=== PATIENT | female | born 1970 | race Hispanic/Latino ===

== ENCOUNTER 2018-07-04 13:44 | Emergency (ER) | payer BC ==
[~2018-07-04] VITALS: Ht 157.5 cm; Wt 86.2 kg
[2018-07-04] MEDS ORDERED: DILAUDID4 MG PO (14:20)
[2018-07-04] MEDS ORDERED: STOOL SOFTENER1 EAC2 PO (14:20)
[2018-07-04] MEDS ORDERED: SCOPOLAMINE1 EACH TD (14:21)
--- OUTSIDE RECORDS SUMMARY | 2018-07-04 14:52 | XMS ---
PreManage Notification: SIERRA JEFFERSON Security Dietary Cook Events No recent Security Events currently on file CRITERIA MET - PDM - [facility] - 2 Visits in 30 Days CARE PROVIDERS Melo Vanegas Community Health Worker 07/03/2018-Remedios Raya - PHONE: [phone] OLIVER ANGELES Nurse Practitioner: Family Current PHONE: [phone] FRANNIE JEFFREY Physician Supervisor Cd Area Current PHONE: [phone] FRANNIE JEFFREY Primary Care Current PHONE: Unknown [facility] PHONE: [phone] Maryellen has no Care Guidelines for this patient. Arsh VISIT COUNT (12 MO.) 5 [facility] TOTAL 7 NOTE: Visits indicate total known visits. ED/UCC VISIT TRACKING (12 MO.) 07/04/2018 13:45 [facility] [place] TYPE: Emergency COMPLAINT: - RT SHOULDER PAIN 07/03/2018 09:00 [facility] [place] TYPE: Emergency DIAGNOSES: - Pain in right shoulder - shoulder pain 07/02/2018 01:02 [facility] [place] TYPE: Emergency DIAGNOSES: - shoulder pain - Other acute postprocedural pain 05/09/2018 10:37 [facility] [place] TYPE: Emergency DIAGNOSES: - DIZZINESS - Dizziness and giddiness 03/07/2018 16:33 [facility] [place] TYPE: Emergency DIAGNOSES: - BLADDER INF - Dysuria [facility]2017 16[facility] COMPLAINT: - BACK PAIN DIAGNOSES: - Overexertion from prolonged static or awkward postures, initial encounter - Civilian activity done for income or pay - Activity, other specified - Cervicalgia - OVEREXERTION FROM PROLONGED STATIC OR AWKWARD POSTURES, INIT 08/31/2017 13:38 [facility] TYPE: Emergency COMPLAINT: - LOWER BACK PAIN - DORSALGIA UNSPECIFIED - MUSCLE SPASM OF BACK DIAGNOSES: 0. Dorsalgia, unspecified 1. Radiculopathy, lumbar region 4. Migraine, unspecified, not intractable, without status migrainosus 5. Other intermodal customer service (current) drug therapy 6. Tubal ligation status INPATIENT VISIT TRACKING (12 MO.) No inpatient visits to display in this time frame [email or web address]
[2018-07-04] MEDS ORDERED: AMBIEN10 MG PO (16:30)
[2018-07-04] MEDS ORDERED: CYCLOBENZAPRINE10 MG PO (16:30)
== END 2018-07-04 16:47 | disposition home or self-care (01) ==
LOC: ED 13:44
DX: G89.18 Other acute postprocedural pain (principal); M25.511 Pain in right shoulder
CPT/HCPCS: 80053; 85025; 96374; 96375; 99283-25; J1170; J2060; J2405; J7120